=== PATIENT | female | born 1990 | race Caucasian/White ===

== ENCOUNTER 2018-03-19 10:28 | Outpatient (CLI) | payer OTHER | END 2018-03-19 10:37 | disposition home or self-care (01) | LOC: LAB 10:28 | DX: R10.9 Unspecified abdominal pain (principal); R00.2 Palpitations; R12 Heartburn ==

== ENCOUNTER 2018-03-19 10:36 | Outpatient (CLI) | payer OTHER | END 2018-03-19 10:39 | disposition home or self-care (01) | LOC: RX STUDY 10:36 | DX: R12 Heartburn (principal); R13.10 Dysphagia, unspecified ==

== ENCOUNTER → 2018-03-19 | Outpatient (CLI) | payer OTHER ==
[~2018-03-19] MED LIST: ACYCLOVIR15 GM TOP; CIPRO100 MG; FLEXERIL 10 MG PO; FLONASE16 GM NS; GILTUSS TR TAB1 EACH PO; INTESTINEX PO; LEVAQUIN500 MG PO; METHOCARBAMOL500 MG PO; ORPH100T PO; PEPCID40 MG PO; PHENERGAN25 MG PO; TORADOL10 MG; VOLTAREM 50 MG PO; ZITHROMAX200 MG PO; ZITHROMAX500 MG PO; ZOVIRAX15 GM TP; ZOVIRAX400 MG PO; ZYRTEC10 MG PO; [UNRECOGNIZED DRUG - OTHER] PO
== END | disposition home or self-care (01) ==
LOC: PPHC 09:10
DX: R13.19 Other dysphagia (principal)

== ENCOUNTER 2018-07-08 09:16 | Outpatient (CLI) | payer OTHER | END 2018-07-08 09:20 | disposition home or self-care (01) | LOC: LAB 09:16 | DX: J35.01 Chronic tonsillitis (principal) ==

== ENCOUNTER 2018-11-22 10:58 | Outpatient (CLI) | payer OTHER | END 2018-11-22 11:15 | disposition home or self-care (01) | LOC: LAB 10:58 | DX: M54.2 Cervicalgia (principal); M54.89 Other dorsalgia ==

== ENCOUNTER 2019-01-12 17:08 | Emergency (ER) | payer OTHER ==
[~2019-01-12] VITALS: Ht 165.1 cm; Wt 54.4 kg
[2019-01-12] MEDS ORDERED: KETO10TA2 PO (21:08)
[2019-01-12] MEDS ORDERED: AMOX-CLAV 875-1 EACH PO (21:08)
[2019-01-12] MEDS ORDERED: INTESTINEX680 M1 PO (21:08)
[2019-01-12] MEDS ORDERED: MAPAP500 MG (22:22)
== END 2019-01-12 21:42 | disposition home or self-care (01) ==
LOC: ER 17:08
DX: S90.872A Other superficial bite of left foot, initial encounter (principal); S90.871A Other superficial bite of right foot, initial encounter; W54.0XXA Bitten by dog, initial encounter; Y93.89 Activity, other specified; Y92.098 Other place in other non-institutional residence as the place of occurrence of the external cause; Y99.8 Other external cause status

== ENCOUNTER 2019-04-22 08:03 | Outpatient (CLI) | payer OTHER ==
[~2019-04-22 08:03] MED LIST changes: +AMOX-CLAV 875-1 EACH PO; +INTESTINEX680 M1 PO; +KETO10TA2 PO; +MAPAP500 MG
== END 2019-04-22 13:50 | disposition home or self-care (01) ==
LOC: NUCLEAR 08:03
DX: Q21.1 Atrial septal defect (principal); R00.2 Palpitations

== ENCOUNTER 2020-01-20 11:00 | Outpatient (CLI) | payer OTHER | END 2020-01-20 11:04 | disposition home or self-care (01) | LOC: LAB 11:00 | DX: J11.1 Influenza due to unidentified influenza virus with other respiratory manifestations (principal) ==

== ENCOUNTER 2020-01-27 10:36 | Outpatient (CLI) | payer OTHER | END 2020-01-27 10:41 | disposition home or self-care (01) | LOC: LAB 10:36 | DX: R42 Dizziness and giddiness (principal); Z00.00 Encounter for general adult medical examination without abnormal findings; N39.0 Urinary tract infection, site not specified; E78.49 Other hyperlipidemia; E55.9 Vitamin D deficiency, unspecified ==

== ENCOUNTER 2020-02-02 12:36 | Outpatient (CLI) | payer OTHER | END 2020-02-02 12:49 | disposition home or self-care (01) | LOC: LAB 12:36 | DX: J11.1 Influenza due to unidentified influenza virus with other respiratory manifestations (principal) ==

== ENCOUNTER 2022-05-21 10:42 | Outpatient (CLI) | payer OTHER | END 2022-05-21 10:43 | disposition home or self-care (01) | LOC: LAB 10:42 | PROVIDERS: ATTEND Internal Medicine Cardiovascular Disease | DX: D64.9 Anemia, unspecified (principal); R10.9 Unspecified abdominal pain; E78.5 Hyperlipidemia, unspecified; D55.9 Anemia due to enzyme disorder, unspecified; E11.9 Type 2 diabetes mellitus without complications ==

== ENCOUNTER 2022-05-29 13:16 | Emergency (ER) | payer OTHER ==
[~2022-05-29] VITALS: Ht 165.1 cm; Wt 59.0 kg
== END 2022-05-29 18:18 | disposition home or self-care (01) ==
LOC: ER 13:16
DX: B34.9 Viral infection, unspecified (principal); Z20.822 Contact with and (suspected) exposure to COVID-19

== ENCOUNTER 2022-08-23 12:37 | Outpatient (CLI) | payer OTHER | END 2022-08-23 13:00 | disposition home or self-care (01) | LOC: RAD 12:37 | DX: M99.01 Segmental and somatic dysfunction of cervical region (principal); M99.02 Segmental and somatic dysfunction of thoracic region; M99.03 Segmental and somatic dysfunction of lumbar region; M99.04 Segmental and somatic dysfunction of sacral region; M99.05 Segmental and somatic dysfunction of pelvic region ==

== ENCOUNTER 2023-01-19 08:16 | Outpatient (CLI) | payer OTHER | END 2023-01-19 08:17 | disposition home or self-care (01) | LOC: RAD 08:16 | DX: M79.641 Pain in right hand (principal) ==

== ENCOUNTER 2025-02-06 09:51 | Outpatient (CLI) | payer OTHER ==
[2025-02-06 10:52] LABS: MEAN CELL VOLUME 83.8 fL (80.00-100.00); MEAN CORPUSCULAR HEMOGLOBIN 27.9 pg (27.00-32.0); MEAN CORPUSCULAR HGB CONC 33.3 g/dl (32.0-36.0); PLATELET COUNT 291 K/uL (150-450); RED BLOOD COUNT 4.65 M/uL (4.00-6.00); RED CELL DISTRIBUTION WIDTH 14.8 % (11.5-14.5)
[2025-02-06 11:33] LABS: ALBUMIN 3.5 gm/dL (3.4-5.0); BILIRUBIN TOTAL 0.57 mg/dL (0.3-1.2); CALCIUM 8.9 mg/dL (8.5-10.1); CHOL HDL RATIO 2.1 (0-5.0); CREATININE SERUM 0.65 mg/dL (0.55-1.02); GFR 104.34; POTASSIUM 4.36 mEq/L (3.5-5.1); TOTAL PROTEIN 7.5 gm/dL (6.4-8.2); TSH 0.83 uIU/mL (0.358-3.74)
[2025-02-06 11:57] LABS: PH,URINE 5.5 (5.0-8.0); URINE APPEARANCE Clear; URINE BILIRRUBIN Negative (NEGATIVE); URINE BLOOD Negative; URINE COLOR Yellow; URINE GLUCOSE Negative (NEGATIVE); URINE KETONE Negative (NEGATIVE); URINE LEUKOCYTE Negative; URINE NITRATE Negative; URINE PROTEIN Negative (NEGATIVE); URINE UROBILINOGEN 0.2 E.U./dl
[2025-02-06 12:01] LABS: URINE EPITHELIAL CELLS 6.8 uL (0.0-38.8); URINE RBC 3.6 uL (0.0-20.8); URINE WBC 7.4 uL (0.0-23.2)
== END 2025-02-06 09:58 | disposition home or self-care (01) ==
LOC: LAB 09:51
PROVIDERS: ATTEND Internal Medicine
DX: I11.9 Hypertensive heart disease without heart failure (principal); E11.9 Type 2 diabetes mellitus without complications; E03.9 Hypothyroidism, unspecified; E78.2 Mixed hyperlipidemia

== ENCOUNTER 2025-05-04 11:40 | Outpatient (CLI) | payer OTHER | END 2025-05-04 13:38 | disposition home or self-care (01) | LOC: RAD 11:40 | PROVIDERS: ATTEND Radiology Diagnostic Radiology | DX: M54.12 Radiculopathy, cervical region (principal); M54.14 Radiculopathy, thoracic region; M54.16 Radiculopathy, lumbar region ==

== ENCOUNTER 2025-06-17 12:01 | Outpatient (CLI) | payer OTHER ==
[~2025-06-17 12:01] MED LIST changes: +NABUMETONE750 MG PO
== END 2025-06-17 12:02 | disposition home or self-care (01) ==
LOC: MRI 12:01
PROVIDERS: ATTEND Radiology Diagnostic Radiology
DX: M54.12 Radiculopathy, cervical region (principal)
CPT/HCPCS: 72141